=== PATIENT | male | born 1985 | race Caucasian/White ===

== ENCOUNTER → 2020-05-18 12:54 | Outpatient (CLI) | payer OTHER | END | disposition home or self-care (01) | LOC: D.RAD 12:54 | PROVIDERS: ATTEND Family Medicine | DX: M54.12 Radiculopathy, cervical region (principal) ==

== ENCOUNTER → 2020-05-25 08:19 | Outpatient (CLI) | payer OTHER | END | disposition home or self-care (01) | LOC: D.MRI 07:30 | PROVIDERS: ATTEND Family Medicine | DX: G54.9 Nerve root and plexus disorder, unspecified (principal); N19 Unspecified kidney failure ==